=== PATIENT | female | born 1955 | race Caucasian/White ===

== ENCOUNTER 2024-02-04 10:24 | Day surgery (SDC) | payer OTHER, BC ==
[2024-01-27 12:22] VITALS: BMI 22.1
[2024-02-04 11:08] VITALS: RESP 18
[2024-02-04] MEDS ORDERED: PROPOFOL 40 ML ONE (11:42)
[2024-02-04 11:56] VITALS: TEMP 97.3
[2024-02-04 14:06] VITALS: BP 141/81; PULSE 84
== END 2024-02-04 13:15 | disposition home or self-care (01) ==
LOC: FASU-ENDO 10:24
PROVIDERS: ATTEND Internal Medicine Gastroenterology
PROC: 0DJD8ZZ Inspection of Lower Intestinal Tract, Via Natural or Artificial Opening Endoscopic (ICD-10-PCS; principal; 2024-02-04 11:30)
DX: Z12.11 Encounter for screening for malignant neoplasm of colon (principal); K64.1 Second degree hemorrhoids